=== PATIENT | male | born 2000 | race African-American/Black ===

== ENCOUNTER 2018-01-06 17:14 | Observation (INO) ==
[2018-01-06] MEDS ORDERED: Sod Chloride 0.9% Inj 1,000 ML IV.SIG ONE (17:53)
[2018-01-06 18:24] LABS: Baso # (Auto) 0.2 th/mm3 (0.0-0.2); Baso % (Auto) 1.3 % (0.0-2.0); Eos # (Auto) 0.1 th/mm3 (0.0-0.4); Eos % (Auto) 0.6 % (0.0-4.0); Hematocrit 42.9 % (39.0-51.0); Hemoglobin 14.4 gm/dL (13.0-17.0); Lymph # (Auto) 1.4 th/mm3 (1.0-4.8); Lymph % (Auto) 10.5 % (9.0-44.0); Mean Corpuscular HGB Conc 33.5 % (32.0-36.0); Mean Corpuscular Volume 80.5 fL (80.0-100.0); Mean Platelet Volume 8.4 fL (7.0-11.0); Mono # (Auto) 0.5 th/mm3 (0.0-0.9); Mono % (Auto) 3.5 % (0.0-8.0); Neut # (Auto) 10.9 th/mm3 (1.8-7.7); Neut % (Auto) 84.1 % (16.0-70.0); Platelet Count 278 th/mm3 (150-450); Red Blood Count 5.33 mil/mm3 (4.50-5.90); Red Cell Distribution Width 13.2 % (11.6-17.2); White Blood Count 13.1 th/mm3 (4.0-11.0)
[2018-01-06 18:28] LABS: Chloride 107 meq/L (98-107); Potassium 3.6 meq/L (3.5-5.1); Sodium 141 meq/L (136-145)
--- NOTE | 2018-01-06 18:29 | ED ---
HPI General Chief Complaint: Abdominal Pain Stated Complaint: Lower Abd Pain xToday Time Seen by Provider: 01/06/18 17:49 History of Present Illness HPI narrative: 17-year-old male otherwise healthy here for evaluation of abdominal pain that started today, patient was at work putting some dishes in the doorkeeper, he felt pain in his RLQ, pain is rated 6 out of 10, dull, nothing makes it better or worse, no fever or chills, no diarrhea, no nausea or vomiting, no chest pain or shortness of breath, no palpitations or sweating. no previous abdominal surgeries, No recent travel or sick contacts and he does not recall eating anything out of the ordinary. Related Data Previous Rx's Medication Instructions Recorded ciprofloxacin HCl [Cipro] 500 mg PO Q12H #14 tab 01/07/18 ketorolac 10 mg PO Q6H PRN 3 Days #12 tab 01/07/18 ondansetron [Zofran ODT] 4 mg PO Q8H PRN #10 tab 01/07/18 Allergies Allergy/AdvReac Type Severity Reaction Status Date / Time No Known Allergies Allergy Verified 01/06/18 17:30 Review of Systems ROS: all other systems reviewed are negative [facility] Social History Social History Substance History: Active Abuse Second Hand Smoke Exposure: No Smoking Status: Never smoker How Often Do You Have a Drink Containing Alcohol: Never Recent Travel in [facility] within the Last 8 Weeks: No Recent Out of Country Travel within the Last 8 Weeks: No Exam Narrative Exam Narrative: GENERAL: Alert oriented x3 no acute distress. SKIN: Focused skin assessment warm/dry. HEAD: Atraumatic. Normocephalic. EYES: Pupils equal and round. No scleral icterus. No injection or drainage. ENT: No nasal bleeding or discharge. Mucous membranes pink and moist. NECK: Trachea midline. No JVD. CARDIOVASCULAR: Regular rate and rhythm. No murmur appreciated. RESPIRATORY: No accessory muscle use. Clear to auscultation. Breath sounds equal bilaterally. GASTROINTESTINAL: tenderness but no rebound on RLQ,pain mainly over mcburney point, Obturator sign neg. Abdomen soft, nondistended. Hepatic and splenic margins not palpable. MUSCULOSKELETAL: No obvious deformities. No clubbing. No cyanosis. No edema. NEUROLOGICAL: Awake and alert. No obvious cranial nerve deficits. Motor grossly within normal limits. Normal speech. PSYCHIATRIC: Appropriate mood and affect; insight and judgment normal. Course Initial Documented Vital Signs Temperature 99.3 F 01/06/18 17:27 Pulse Rate 63 01/06/18 17:27 Respiratory Rate 15 01/06/18 17:27 Blood Pressure 126/59 L 01/06/18 17:27 Pulse Oximetry 100 01/06/18 17:27 Last Documented Vital Signs Temperature 97.0 F L 01/07/18 12:00 Pulse Rate 68 01/07/18 12:00 Respiratory Rate 16 01/07/18 12:00 Blood Pressure 133/58 L 01/07/18 12:00 Pulse Oximetry 97 01/07/18 12:00 Medical Decision Making MDM Narrative Medical decision making narrative: 17 male here for right lower quadrant pain, exam shows tenderness over mcburney point, no rebound, abdomen soft, leukocytosis with left shift, vitals stable, afebrile, UA shows UTI but patient has no UTI like symptoms, CT shows very subtle periappendiceal stranding which could be early appendicitis. Now this could be UTI vs very early appendicitis, but since patient is not having UTI symptoms ie. burning/urgency/frequency. With the positive RLQ tenderness it's likely that he may be having appendicitis. pt is a candidate for admission for monitoring. and surgical consultation. I spoke with Gen surg dr. Mckinney, he recommends holding on for the abx and closely watch for symptoms progression. Medical Screen Exam Complete: Yes Emergency Medical Condition: Yes Lab Data Result diagrams: 01/07/18 06:10 01/07/18 06:10 Lab Results 01/06/18 01/06/18 01/06/18 Range/Units 18:14 18:14 18:34 CBC w Diff Auto diff final WBC 13.1 H (4.0-11.0) th/mm3 RBC 5.33 (4.50-5.90) mil/mm3 Hgb 14.4 (13.0-17.0) gm/dL Hct 42.9 (39.0-51.0) % MCV 80.5 (80.0-100.0) fL MCH 27.0 (27.0-34.0) pg MCHC 33.5 (32.0-36.0) % RDW 13.2 (11.6-17.2) % Plt Count 278 (150-450) th/mm3 MPV 8.4 (7.0-11.0) fL Neut % (Auto) 84.1 H (16.0-70.0) % Lymph % (Auto) 10.5 (9.0-44.0) % [place] % (Auto) 3.5 (0.0-8.0) % Eos % (Auto) 0.6 (0.0-4.0) % Baso % (Auto) 1.3 (0.0-2.0) % Neut # (Auto) 10.9 H (1.8-7.7) th/mm3 Lymph # (Auto) 1.4 (1.0-4.8) th/mm3 [place] # (Auto) 0.5 (0.0-0.9) th/mm3 Eos # (Auto) 0.1 (0.0-0.4) th/mm3 Baso # (Auto) 0.2 (0.0-0.2) th/mm3 WBC Differential . Differential Comment . Sodium 141 (136-145) meq/L Potassium 3.6 (3.5-5.1) meq/L Chloride 107 (98-107) meq/L Carbon Dioxide 25.7 (21.0-32.0) meq/L Anion Gap 8 (5-15) meq/L BUN 10 (7-18) mg/dL Creatinine 0.99 (0.60-1.30) mg/dL Estimated GFR Greater than 89 (>89) mL/min Random Glucose 115 H (74-106) mg/dL Calcium 8.9 (8.5-10.1) mg/dL Total Bilirubin 0.5 (0.2-1.0) mg/dL AST 11 L (15-39) U/L ALT 12 (9-52) U/L Alkaline Phosphatase 72 (45-117) U/L Total Protein 7.2 (6.4-8.2) g/dL Albumin 4.3 (3.4-5.0) g/dL Lipase 73 (73-393) U/L Urine Color Yellow (Yellw/Straw) Urine Clarity Clear (Clear) Urine pH 6.0 (5.0-8.5) Ur Specific [place] Greater/equal 1.030 (1.002-1.035) Urine Protein Trace (Neg-Trace) mg/dL Urine Glucose (UA) Negative (Negative) mg/dL Urine Ketones Trace H (Negative) mg/dL Urine Occult Blood Small H (Negative) Urine Nitrate Negative (Negative) Urine Bilirubin Negative (Negative) Urine Urobilinogen 0.2 (Less than 2) mg/dL Ur Leukocyte Esterase Moderate H (Negative) Urine RBC 4-15 H (0-3) /hpf Urine WBC 9-20 H (0-5) /hpf Ur Squamous Epith Cells 0-5 (0-5) /hpf Urine Bacteria Rare H (None) /hpf Urine Mucus Moderate H (Occasional) /lpf Micro UA Comment Culture indicated Ur Microscopic Review Microscopic reviewed Urine Culture Comments Culture indicated 01/07/18 01/07/18 Range/Units 06:10 06:10 CBC w Diff Auto diff final WBC 8.5 (4.0-11.0) th/mm3 RBC 4.93 (4.50-5.90) mil/mm3 Hgb 13.1 (13.0-17.0) gm/dL Hct 40.5 (39.0-51.0) % MCV 82.1 (80.0-100.0) fL MCH 26.7 L (27.0-34.0) pg MCHC 32.5 (32.0-36.0) % RDW 12.8 (11.6-17.2) % Plt Count 257 (150-450) th/mm3 MPV 8.3 (7.0-11.0) fL Neut % (Auto) 64.3 (16.0-70.0) % Lymph % (Auto) 29.1 (9.0-44.0) % [place] % (Auto) 4.2 (0.0-8.0) % Eos % (Auto) 1.7 (0.0-4.0) % Baso % (Auto) 0.7 (0.0-2.0) % Neut # (Auto) 5.4 (1.8-7.7) th/mm3 Lymph # (Auto) 2.5 (1.0-4.8) th/mm3 [place] # (Auto) 0.4 (0.0-0.9) th/mm3 Eos # (Auto) 0.1 (0.0-0.4) th/mm3 Baso # (Auto) 0.1 (0.0-0.2) th/mm3 WBC Differential . Differential Comment . Sodium 143 (136-145) meq/L Potassium 3.7 (3.5-5.1) meq/L Chloride 109 H (98-107) meq/L Carbon Dioxide 25.1 (21.0-32.0) meq/L Anion Gap 9 (5-15) meq/L BUN 8 (7-18) mg/dL Creatinine 0.79 (0.60-1.30) mg/dL Estimated GFR Greater than 89 (>89) mL/min Random Glucose 81 (74-106) mg/dL Calcium 8.3 L (8.5-10.1) mg/dL Total Bilirubin (0.2-1.0) mg/dL AST (15-39) U/L ALT (9-52) U/L Alkaline Phosphatase (45-117) U/L Total Protein (6.4-8.2) g/dL Albumin (3.4-5.0) g/dL Lipase (73-393) U/L Urine Color (Yellw/Straw) Urine Clarity (Clear) Urine pH (5.0-8.5) Ur Specific [place] (1.002-1.035) Urine Protein (Neg-Trace) mg/dL Urine Glucose (UA) (Negative) mg/dL Urine Ketones (Negative) mg/dL Urine Occult Blood (Negative) Urine Nitrate (Negative) Urine Bilirubin (Negative) Urine Urobilinogen (Less than 2) mg/dL Ur Leukocyte Esterase (Negative) Urine RBC (0-3) /hpf Urine WBC (0-5) /hpf Ur Squamous Epith Cells (0-5) /hpf Urine Bacteria (None) /hpf Urine Mucus (Occasional) /lpf Micro UA Comment Ur Microscopic Review Urine Culture Comments Imaging Data Radiologist's impression: Abdomen/Pelvis CT 01/06/18 17:53 CONCLUSION: 1. Normal-sized appendix with very subtle periappendiceal stranding. Although not likely, cannot entirely exclude very early acute appendicitis in the appropriate clinical setting. Clinical correlation is recommended. Discharge Plan Discharge Disposition Patient Disposition: 01 Discharge Home Discharge Condition Condition: Good Discharge Order Discharge Orders: Discharge Order (Routine); Ordered 01/07/18 Ordered By: Don Lyon Physicians Team ED Provider: Dick Cameron Primary Care Provider: Primary Care Clara Cochran Attending Provider: Don Lyon Other Providers: Gian Mckinney Status ED Status: Left Department Discharge Information Discharge Date/Time: 01/06/18 21:15
[2018-01-06 18:31] LABS: Calcium 8.9 mg/dL (8.5-10.1)
[2018-01-06 18:32] LABS: Albumin 4.3 g/dL (3.4-5.0); Anion Gap 8 meq/L (5-15); Blood Urea Nitrogen 10 mg/dL (7-18); Carbon Dioxide 25.7 meq/L (21.0-32.0); Glucose,Random 115 mg/dL (74-106); Lipase 73 U/L (73-393)
[2018-01-06 18:35] LABS: Alanine Aminotransferase 12 U/L (9-52); Aspartate Aminotransferase 11 U/L (15-39); Glomerular Filtration Rate Greater Than 89 mL/min (>89)
[2018-01-06 18:36] LABS: Total Protein 7.2 g/dL (6.4-8.2)
[2018-01-06 18:38] LABS: Alkaline Phosphatase 72 U/L (45-117)
[2018-01-06 18:45] LABS: Bilirubin,Urine Negative (Negative); Clarity,Urine Clear (Clear); Color,Urine Yellow (Yellw/Straw); Glucose,Urine (UA) Negative (Negative); Leukocyte Esterase,Urine Moderate (Negative); Nitrite,Urine Negative (Negative); Specific Gravity,Urine Greater/Equal 1.030 (1.002-1.035); Urobilinogen,Urine 0.2 mg/dL (Less than 2)
[2018-01-06 18:51] LABS: Bacteria,Urine Rare /hpf; Mucus,Urine Moderate /lpf (Occasional); Squamous Epithelial Cell,Urine 0-5 /hpf (0-5)
--- NOTE | 2018-01-06 19:26 | CT ---
EXAM DATE: 01/06/2018 6:08 PM EDT AGE/SEX: 17 years / Male INDICATIONS: Bilateral lower quadrant pain. CLINICAL DATA: This is the patient's initial encounter. Patient reports that signs and symptoms have been present for 1 day and indicates a pain score of 7/10. MEDICAL/SURGICAL HISTORY: None. Inguinal hernia repair. ORAL CONTRAST: No oral contrast ingested. RADIATION DOSE: 5.13 CTDI (mGy) COMPARISON: No prior exams available for comparison. TECHNIQUE: Multiple contiguous axial images were obtained through the abdomen and pelvis following b olus infusion of 100 ml Omnipaque 350 (iohexol) nonionic water-soluble contrast as a single exam do se. No oral contrast ingested. Using automated exposure control and adjustment of the mA and/or kV a ccording to patient size, radiation dose was kept as low as reasonably achievable to obtain optimal d iagnostic quality images. DICOM format image data is available electronically for review and compari son. FINDINGS: LOWER LUNGS: The visualized lower lungs are clear. LIVER: The liver has a homogeneous density without space-occupying lesion. There is no dilation of t he biliary tree. SPLEEN: Homogeneous density without enlargement. PANCREAS: Unremarkable without mass or calcification. KIDNEYS: Kidneys demonstrate symmetrical enhancement and are symmetrical in size without evidence fo r radiopaque renal calculi or hydronephrosis. ADRENAL GLANDS: Unremarkable. AORTA: Soniya-aneurysmal. BOWEL/MESENTERY: Appendix is visualized and within normal limits for size. However, there is very holder btle periappendiceal stranding. No pericecal fluid collections or free air. Remaining bowel appear gr ossly unremarkable without evidence for obstruction. There is no significant free fluid . ABDOMINAL WALL: Intact. RETROPERITONEUM: No evidence of adenopathy in the retrocrural, para-aortic, or deep pelvic regions. BLADDER: Contours are smooth. REPRODUCTIVE: No abnormal masses or calcifications seen. BONY STRUCTURES: Unremarkable. CONCLUSION: 1. Normal-sized appendix with very subtle periappendiceal stranding. Although not likely, cannot ent irely exclude very early acute appendicitis in the appropriate clinical setting. Clinical correlation is recommended. Electronically signed by: Lenard James MD 01/06/2018 7:25 PM EDT
[2018-01-06] MEDS ORDERED: Piperacil/Tazo 3.375 GM Premix 50 ML IV.SIG ONE (19:52)
[2018-01-06] MEDS ORDERED: Acetaminophen 325 MG Tablet PO PRN (20:52)
[2018-01-06] MEDS ORDERED: Sod Chloride 0.9% Inj 1,000 ML IV.CONT SCH (21:00)
[2018-01-06] MEDS: Senna/Docusate Sodium 8.6/50 MG Tablet PO SCH (21:33)
[2018-01-07] MEDS ORDERED: Piperacil/Tazo 3.375 GM Premix 50 ML IV.SIG SCH (02:00)
[2018-01-07 06:35] LABS: Baso # (Auto) 0.1 th/mm3 (0.0-0.2); Baso % (Auto) 0.7 % (0.0-2.0); Eos # (Auto) 0.1 th/mm3 (0.0-0.4); Eos % (Auto) 1.7 % (0.0-4.0); Hematocrit 40.5 % (39.0-51.0); Hemoglobin 13.1 gm/dL (13.0-17.0); Lymph # (Auto) 2.5 th/mm3 (1.0-4.8); Lymph % (Auto) 29.1 % (9.0-44.0); Mean Corpuscular HGB Conc 32.5 % (32.0-36.0); Mean Corpuscular Hemoglobin 26.7 pg (27.0-34.0); Mean Corpuscular Volume 82.1 fL (80.0-100.0); Mean Platelet Volume 8.3 fL (7.0-11.0); Mono # (Auto) 0.4 th/mm3 (0.0-0.9); Mono % (Auto) 4.2 % (0.0-8.0); Neut # (Auto) 5.4 th/mm3 (1.8-7.7); Neut % (Auto) 64.3 % (16.0-70.0); Platelet Count 257 th/mm3 (150-450); Red Blood Count 4.93 mil/mm3 (4.50-5.90); Red Cell Distribution Width 12.8 % (11.6-17.2); White Blood Count 8.5 th/mm3 (4.0-11.0)
[2018-01-07 06:55] LABS: Chloride 109 meq/L (98-107); Potassium 3.7 meq/L (3.5-5.1); Sodium 143 meq/L (136-145)
[2018-01-07 06:58] LABS: Anion Gap 9 meq/L (5-15); Blood Urea Nitrogen 8 mg/dL (7-18); Calcium 8.3 mg/dL (8.5-10.1); Carbon Dioxide 25.1 meq/L (21.0-32.0); Glucose,Random 81 mg/dL (74-106)
[2018-01-07 07:01] LABS: Glomerular Filtration Rate Greater Than 89 mL/min (>89)
--- NOTE | 2018-01-07 08:31 | P.CONGS ---
[facility] Gen Surgery Consult Note Consult date: 01/07/18 Reason for consult: abdominal pain Requesting physician: Danielle King Narrative: This is a 17 year old male with no significant past medical history who presented to the ED yesterday evening with complaints of RLQ abdominal pain with associated nausea and vomiting. 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 He continued to work for about another hour until he couldn't deal with the pain anymore. He arrived to the ED after calling his Grandfather. A CT abdomen/ pelvis was obtained which shows a normal appearing appendix. His WBC is 13,000 yesterday. The WBC was repeated today which is 8,000. His pain is essential resolved this morning. He is feeling much better. He feels hungry this morning. A General Surgery consultation has been requested. Review of Systems All other systems reviewed negative except as stated in HPI Constitutional: Denies anorexia, Denies night sweats Eyes: Denies blurry vision, Denies change in vision Ears, Nose, Mouth, and Throat: Denies abnormal hearing, Denies dental pain Cardiovascular: Denies chest pain, Denies foot swelling Respiratory: Denies chest congestion, Denies cough Gastrointestinal: Reports abdominal pain, Reports nausea Genitourinary: Denies blood in urine, Denies difficulty urinating Musculoskeletal: Denies abnormal walking, Denies back pain Skin/Breast: Denies change in skin color, Denies skin pain Neurologic: Denies dizziness, Denies headache(s) Psychiatric: Denies difficulty concentrating, Denies memory loss Endocrine: Denies cold intolerance, Denies excessive sweating PMFSH - History History Provided By: Patient - Medical History Medical History: Medical History (Last Reviewed 01/07/18 @ 09:32 by ELVAI Cho) Patient denies medical problems - Surgical History Surgical History: Surgical History (Last Reviewed 01/07/18 @ 09:32 by ELVIA Cho) History of bilateral inguinal hernia repair - Family History Family History: Family History (Last Updated 01/10/18 @ 21:19 by Gian Mckinney MD) Father No family history of cardiac disease - Tobacco History Second Hand Smoke Exposure: No Tobacco Use In Past 30 Days: No Smoking Status: Never smoker - Alcohol History How Often Do You Have a Drink Containing Alcohol: Never - Substance Use History Substance History: Active Abuse - Substance Use Type Marijuana Status: Active Route Used: Inhalation Frequency: DAILY Reason for Use: Feels Good - Travel History Recent Travel in the [place] Within the Last 8 Weeks: No Recent Travel Out of the Country Within the Last 8 Weeks: No - Immunization History Tetanus Immunization: <5 Years Medications and Allergies Allergies Allergy/AdvReac Type Severity Reaction Status Date / Time No Known Allergies Allergy Verified 01/06/18 17:30 Active Medications: Active Medications Acetaminophen (Tylenol) 650 mg PO Q4H PRN PRN Reason: Temp > 100.4 Sodium Chloride (Ns Inj) 1,000 mls @ 70 mls/hr IV.CONT .[id number] [facility] Last Admin: 01/06/18 21:33 Dose: 70 mls/hr Ondansetron HCl (Zofran Inj) 4 mg IV.PUSH Q6H PRN PRN Reason: NAUSEA OR VOMITING Senna/Docusate Sodium (Jerilyn-Colace) 1 tab PO BID [facility] Last Admin: 01/06/18 21:33 Dose: Not Given Exam Vital signs: Vital Signs 01/06/18 17:27 01/06/18 20:30 01/06/18 22:00 Temperature 99.3 F 98.2 F Pulse Rate 63 64 65 Respiratory Rate 15 16 20 Blood Pressure 126/59 L 117/54 L 127/62 Pulse Oximetry 100 98 100 01/07/18 00:00 Temperature 97.8 F Pulse Rate 48 L Respiratory Rate 18 Blood Pressure 110/56 L Pulse Oximetry 98 Intake & Output 01/06/18 01/07/18 01/07/18 18:59 06:59 18:59 Intake Total 1000 / 1000 Output Total 0 / 0 Balance 1000 / 1000 Weight 62 kg 62.1 kg Intake: IV 1000 / 1000 NS Inj 1,000 ML @ Wide Open IV. 1000 / 1000 SIG BOLUS ONE Rx#:[id number] Oral 0 / 0 Oral Supplement 0 / 0 Output: Urine 0 / 0 Other: Post Void Residual 0 Weight On Admission 62.3 kg Narrative: GENERAL: Very pleasant 17 year old male resting in bed in no acute distress. SKIN: Warm and dry. HEAD: Atraumatic. Normocephalic. EYES: Pupils equal and round. No scleral icterus. No injection or drainage. ENT: No nasal bleeding or discharge. Mucous membranes pink and moist. NECK: Trachea midline. CARDIOVASCULAR: Regular rate and rhythm. RESPIRATORY: No accessory muscle use. Clear to auscultation. Breath sounds equal bilaterally. GASTROINTESTINAL: Abdomen soft, nondistended, flat abdomen. He has very dull faint RLQ tenderness with very deep palpation. No guarding. MUSCULOSKELETAL: Extremities without clubbing, cyanosis, or edema. No obvious deformities. NEUROLOGICAL: Awake and alert. No obvious cranial nerve deficits. Motor grossly within normal limits. Five out of 5 muscle strength in the arms and legs. Normal speech. PSYCHIATRIC: Appropriate mood and affect; insight and judgment normal. Results - Labs 01/07/18 06:10 01/07/18 06:10 Laboratory Results - last 24 hr 01/06/18 01/06/18 01/06/18 18:14 18:14 18:34 CBC w Diff Auto diff final WBC 13.1 H RBC 5.33 Hgb 14.4 Hct 42.9 MCV 80.5 MCH 27.0 MCHC 33.5 RDW 13.2 Plt Count 278 MPV 8.4 Neut % (Auto) 84.1 H Lymph % (Auto) 10.5 [place] % (Auto) 3.5 Eos % (Auto) 0.6 Baso % (Auto) 1.3 Neut # (Auto) 10.9 H Lymph # (Auto) 1.4 [place] # (Auto) 0.5 Eos # (Auto) 0.1 Baso # (Auto) 0.2 WBC Differential . Differential Comment . Sodium 141 Potassium 3.6 Chloride 107 Carbon Dioxide 25.7 Anion Gap 8 BUN 10 Creatinine 0.99 Estimated GFR Greater than 89 Random Glucose 115 H Calcium 8.9 Total Bilirubin 0.5 AST 11 L ALT 12 Alkaline Phosphatase 72 Total Protein 7.2 Albumin 4.3 Lipase 73 Urine Color Yellow Urine Clarity Clear Urine pH 6.0 Ur Specific [place] Greater/equal 1.030 Urine Protein Trace Urine Glucose (UA) Negative Urine Ketones Trace H Urine Occult Blood Small H Urine Nitrate Negative Urine Bilirubin Negative Urine Urobilinogen 0.2 Ur Leukocyte Esterase Moderate H Urine RBC 4-15 H Urine WBC 9-20 H Ur Squamous Epith Cells 0-5 Urine Bacteria Rare H Urine Mucus Moderate H Micro UA Comment Culture indicated Ur Microscopic Review Microscopic reviewed Urine Culture Comments Culture indicated 01/07/18 01/07/18 06:10 06:10 CBC w Diff Auto diff final WBC 8.5 RBC 4.93 Hgb 13.1 Hct 40.5 MCV 82.1 MCH 26.7 L MCHC 32.5 RDW 12.8 Plt Count 257 MPV 8.3 Neut % (Auto) 64.3 Lymph % (Auto) 29.1 [place] % (Auto) 4.2 Eos % (Auto) 1.7 Baso % (Auto) 0.7 Neut # (Auto) 5.4 Lymph # (Auto) 2.5 [place] # (Auto) 0.4 Eos # (Auto) 0.1 Baso # (Auto) 0.1 WBC Differential . Differential Comment . Sodium 143 Potassium 3.7 Chloride 109 H Carbon Dioxide 25.1 Anion Gap 9 BUN 8 Creatinine 0.79 Estimated GFR Greater than 89 Random Glucose 81 Calcium 8.3 L Total Bilirubin AST ALT Alkaline Phosphatase Total Protein Albumin Lipase Urine Color Urine Clarity Urine pH Ur Specific [place] Urine Protein Urine Glucose (UA) Urine Ketones Urine Occult Blood Urine Nitrate Urine Bilirubin Urine Urobilinogen Ur Leukocyte Esterase Urine RBC Urine WBC Ur Squamous Epith Cells Urine Bacteria Urine Mucus Micro UA Comment Ur Microscopic Review Urine Culture Comments - Imaging Imaging: ITS Impressions Abdomen/Pelvis CT 01/06/18 17:53 CONCLUSION: 1. Normal-sized appendix with very subtle periappendiceal stranding. Although not likely, cannot entirely exclude very early acute appendicitis in the appropriate clinical setting. Clinical correlation is recommended. CT scan - abdomen: image reviewed Assessment and Plan - Assessment (1) Abdominal pain Code(s): R10.9 - Unspecified abdominal pain Status: Acute Plan: 17 year old male with sudden acute RLQ abdominal pain yesterday; resolved -Reviewed CT scan -Exam not consistent with appendicitis -WBC decreased--- no antibiotics given -Follow urine culture -Will start a trial of clear liquids this morning and advance as tolerated through the day -Unlikely to be acute appendicitis -Discussed in detail with patient and family at the bedside -All questions answered -Thank you for this consult - Plan Discussed Condition With: Dr. Hank Escobar and family at the beside - Attending Attestation patient seen at bedside acute rlq pain, no fevers, wbc resolving pt with benign exam unlikely appendicitis etiology The exam, history, and the medical decision-making described in the above note were completed with the assistance of the mid-level provider. I reviewed and agree with the findings presented. I attest that I had a [id number] encounter with the patient on the same day, and personally performed and documented my assessment and findings in the medical record.
[2018-01-07 08:39] VITALS: RESP 16
[2018-01-07] MEDS: Senna/Docusate Sodium 8.6/50 MG Tablet PO SCH (09:24)
--- NOTE | 2018-01-07 11:04 | P.HP ---
History of Present Illness Primary Care Physician: No Primary Care Physician Chief Complaint: Right lower quadrant abdominal pain History of Present Illness: 17-year-old male with no significant past medical history presented to the ED yesterday for evaluation of an acute onset of right lower quadrant abdominal pain associated nausea and vomiting, pain rated 8 in intensity. Pain was described as sharp in nature with radiation initially from the left lower quadrant to the Right lower quadrant. This happens at work. 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 In the ED, patient had a abdomen/pelvis which showed a normal appearing Appendix. Abnormal lab include WBC of 13,000 however currently the patient has no leukocytosis. He was able to tolerate p.o. this a.m. He has no other issue - Diagnosis (1) Abdominal pain Review of Systems All other systems reviewed negative except as stated in HPI PMFSH - History History Provided By: Patient - Medical History Medical History: Medical History (Last Reviewed 01/07/18 @ 09:32 by ELVIA Cho) Patient denies medical problems - Surgical History Surgical History: Surgical History (Last Reviewed 01/07/18 @ 09:32 by ELVIA Cho) History of bilateral inguinal hernia repair - Family History Family History: Family History (Last Updated 01/07/18 @ 11:00 by Don Lyon MD) Other No family history of cardiac disease - Tobacco History Second Hand Smoke Exposure: No Tobacco Use In Past 30 Days: No Smoking Status: Never smoker - Alcohol History How Often Do You Have a Drink Containing Alcohol: Never - Substance Use History Substance History: Active Abuse - Substance Use Type Marijuana Status: Active Route Used: Inhalation Frequency: DAILY Reason for Use: Feels Good - Travel History Recent Travel in the [place] Within the Last 8 Weeks: No Recent Travel Out of the Country Within the Last 8 Weeks: No - Immunization History Tetanus Immunization: <5 Years Medications and Allergies Active Medications: Active Medications Acetaminophen (Tylenol) 650 mg PO Q4H PRN PRN Reason: Temp > 100.4 Sodium Chloride (Ns Inj) 1,000 mls @ 70 mls/hr IV.CONT .[id number] ALFREDO Last Infusion: 01/07/18 08:30 Dose: 0 mls/hr Ondansetron HCl (Zofran Inj) 4 mg IV.PUSH Q6H PRN PRN Reason: NAUSEA OR VOMITING Senna/Docusate Sodium (Jerilyn-Colace) 1 tab PO BID ALFREDO Last Admin: 01/07/18 09:24 Dose: Not Given Allergies Allergy/AdvReac Type Severity Reaction Status Date / Time No Known Allergies Allergy Verified 01/06/18 17:30 Home Medications Medication Instructions Recorded Confirmed Type No Known Home Medications 01/06/18 01/06/18 History Exam Vital signs: Vital Signs 01/06/18 17:27 01/06/18 20:30 01/06/18 22:00 Temperature 99.3 F 98.2 F Pulse Rate 63 64 65 Respiratory Rate 15 16 20 Blood Pressure 126/59 L 117/54 L 127/62 Pulse Oximetry 100 98 100 01/07/18 00:00 01/07/18 08:00 Temperature 97.8 F 97.6 F Pulse Rate 48 L 50 L Respiratory Rate 18 16 Blood Pressure 110/56 L 128/70 Pulse Oximetry 98 98 Intake & Output 01/06/18 01/07/18 01/07/18 18:59 06:59 18:59 Intake Total 1000 / 1000 Output Total 0 / 0 Balance 1000 / 1000 Weight 62 kg 62.1 kg Intake: IV 1000 / 1000 NS Inj 1,000 ML @ Wide Open IV. 1000 / 1000 SIG BOLUS ONE Rx#:[id number] Oral 0 / 0 Oral Supplement 0 / 0 Output: Urine 0 / 0 Other: Post Void Residual 0 Weight On Admission 62.3 kg Narrative: GENERAL: NAD SKIN: Warm and dry. HEAD: Atraumatic. Normocephalic. EYES: Pupils equal and round. No scleral icterus. No injection or drainage. ENT: No nasal bleeding or discharge. Mucous membranes pink and moist. NECK: Trachea midline. No JVD. CARDIOVASCULAR: Regular rate and rhythm. RESPIRATORY: No accessory muscle use. Clear to auscultation. Breath sounds equal bilaterally. GASTROINTESTINAL: Abdomen soft, non-tender, nondistended. Hepatic and splenic margins not palpable. MUSCULOSKELETAL: Extremities without clubbing, cyanosis, or edema. No obvious deformities. NEUROLOGICAL: Awake and alert. No obvious cranial nerve deficits. Motor grossly within normal limits. Five out of 5 muscle strength in the arms and legs. Normal speech. PSYCHIATRIC: Appropriate mood and affect; insight and judgment normal. Results - Labs CBC & Chem 7: 01/07/18 06:10 01/07/18 06:10 Labs: Laboratory Results - last 24 hr 01/06/18 01/06/18 01/06/18 18:14 18:14 18:34 CBC w Diff Auto diff final WBC 13.1 H RBC 5.33 Hgb 14.4 Hct 42.9 MCV 80.5 MCH 27.0 MCHC 33.5 RDW 13.2 Plt Count 278 MPV 8.4 Neut % (Auto) 84.1 H Lymph % (Auto) 10.5 [place] % (Auto) 3.5 Eos % (Auto) 0.6 Baso % (Auto) 1.3 Neut # (Auto) 10.9 H Lymph # (Auto) 1.4 [place] # (Auto) 0.5 Eos # (Auto) 0.1 Baso # (Auto) 0.2 WBC Differential . Differential Comment . Sodium 141 Potassium 3.6 Chloride 107 Carbon Dioxide 25.7 Anion Gap 8 BUN 10 Creatinine 0.99 Estimated GFR Greater than 89 Random Glucose 115 H Calcium 8.9 Total Bilirubin 0.5 AST 11 L ALT 12 Alkaline Phosphatase 72 Total Protein 7.2 Albumin 4.3 Lipase 73 Urine Color Yellow Urine Clarity Clear Urine pH 6.0 Ur Specific [place] Greater/equal 1.030 Urine Protein Trace Urine Glucose (UA) Negative Urine Ketones Trace H Urine Occult Blood Small H Urine Nitrate Negative Urine Bilirubin Negative Urine Urobilinogen 0.2 Ur Leukocyte Esterase Moderate H Urine RBC 4-15 H Urine WBC 9-20 H Ur Squamous Epith Cells 0-5 Urine Bacteria Rare H Urine Mucus Moderate H Micro UA Comment Culture indicated Ur Microscopic Review Microscopic reviewed Urine Culture Comments Culture indicated 01/07/18 01/07/18 06:10 06:10 CBC w Diff Auto diff final WBC 8.5 RBC 4.93 Hgb 13.1 Hct 40.5 MCV 82.1 MCH 26.7 L MCHC 32.5 RDW 12.8 Plt Count 257 MPV 8.3 Neut % (Auto) 64.3 Lymph % (Auto) 29.1 [place] % (Auto) 4.2 Eos % (Auto) 1.7 Baso % (Auto) 0.7 Neut # (Auto) 5.4 Lymph # (Auto) 2.5 [place] # (Auto) 0.4 Eos # (Auto) 0.1 Baso # (Auto) 0.1 WBC Differential . Differential Comment . Sodium 143 Potassium 3.7 Chloride 109 H Carbon Dioxide 25.1 Anion Gap 9 BUN 8 Creatinine 0.79 Estimated GFR Greater than 89 Random Glucose 81 Calcium 8.3 L Total Bilirubin AST ALT Alkaline Phosphatase Total Protein Albumin Lipase Urine Color Urine Clarity Urine pH Ur Specific [place] Urine Protein Urine Glucose (UA) Urine Ketones Urine Occult Blood Urine Nitrate Urine Bilirubin Urine Urobilinogen Ur Leukocyte Esterase Urine RBC Urine WBC Ur Squamous Epith Cells Urine Bacteria Urine Mucus Micro UA Comment Ur Microscopic Review Urine Culture Comments - Imaging Impressions Abdomen/Pelvis CT 01/06/18 17:53 CONCLUSION: 1. Normal-sized appendix with very subtle periappendiceal stranding. Although not likely, cannot entirely exclude very early acute appendicitis in the appropriate clinical setting. Clinical correlation is recommended. Caprini VTE Risk Assessment Caprini VTE Risk Assessment: No/Low Risk (score <= 1) Caprini Risk Assessment Model: Point Value = 1 Point Value = 2 Point Value = 3 Point Value = 5 Age 41-60 Minor surgery BMI > 25 kg/m2 Swollen legs Varicose veins or History of unexplained or recurrent spontaneous Oral contraceptives or hormone replacement Sepsis (< 1 month) Serious lung disease, including pneumonia (< 1 month) Abnormal pulmonary function Acute myocardial infarction Congestive heart failure (< 1 month) History of inflammatory bowel disease Medical patient at bed rest Age 61-74 Arthroscopic surgery Major open surgery (> 45 min) Laparoscopic surgery (> 45 min) Malignancy Confined to bed (> 72 hours) Immobilizing plaster cast Central venous access Age >= 75 History of VTE Family history of VTE Factor V Leiden Prothrombin [id number] Lupus anticoagulant Anticardiolipin antibodies Elevated serum homocysteine Heparin-induced thrombocytopenia Other congenital or acquired thrombophilia Stroke (< 1 month) Elective arthroplasty Hip, pelvis, or leg fracture Acute spinal cord injury (< 1 month) Prophylaxis Regimen: Total Risk Factor Score Risk Level Prophylaxis Regimen 0-1 Low Early ambulation 2 Moderate Order ONE of the following: *Sequential Compression Device (SCD) *Heparin 5000 units SQ BID 3-4 Higher Order ONE of the following medications: *Heparin 5000 units SQ TID *Enoxaparin/Lovenox 40 mg SQ daily (WT < 150 kg, CrCl > 30 mL/min) *Enoxaparin/Lovenox 30 mg SQ daily (WT < 150 kg, CrCl > 10-29 mL/min) *Enoxaparin/Lovenox 30 mg SQ BID (WT < 150 kg, CrCl > 30 mL/min) AND/OR *Sequential Compression Device (SCD) 5 or more Highest Order ONE of the following medications: *Heparin 5000 units SQ TID (Preferred with Epidurals) *Enoxaparin/Lovenox 40 mg SQ daily (WT < 150 kg, CrCl > 30 mL/min) *Enoxaparin/Lovenox 30 mg SQ daily (WT < 150 kg, CrCl > 10-29 mL/min) *Enoxaparin/Lovenox 30 mg SQ BID (WT < 150 kg, CrCl > 30 mL/min) AND *Sequential Compression Device (SCD) Assessment and Plan - Assessment (1) Abdominal pain Code(s): R10.9 - Unspecified abdominal pain Status: Acute - Plan 17-year-old man with Abdominal pain Right lower quadrant abdominal pain CT abdomen/pelvis noted and reviewed with finding of Normal-sized appendix with very subtle periappendiceal stranding General surgery was consulted Initially patient admitted with leukocytosis, however now resolved Tolerated p.o. Less likely appendicitis Discharge patient to home Condition on discharge: Improved Regular Diet as tolerated Ad Karla activity Rx written:None Follow-up with primary care physician
[2018-01-07 12:04] VITALS: BP 133/58; PULSE 68; TEMP 97; O2SAT 97
== END 2018-01-07 13:15 | disposition home or self-care (01) ==
LOC: PHED 17:14 → PHEDA 20:23 → INTOOBSV 20:23 → PH3 21:15
PROVIDERS: ADMIT Hospitalist; ATTEND Hospitalist